=== PATIENT | female | born 1985 | race Caucasian/White ===

== ENCOUNTER 2016-04-17 13:07 | Day surgery (SDC) | payer MEDICAID ==
--- OUTSIDE RECORDS SUMMARY | 2016-04-17 13:10 | XMS REPORT | Continuity of Care Document ---
:1985 Author Organization [facility] ([facility]) Address [address] [place] [address] Phone [phone] Care Team Providers Name Role Phone [facility] Primary Care Provider [phone] Source Comments This disclosure is being made pursuant to the Care Everywhere program, applicable federal and state laws, and may not contain all informaitonavailable regarding this patient.[facility] ([facility]) Active Allergies and Adverse Reactions No Known Allergies Current Medications Prescription Sig. Disp. Refills Start Date End Date Status multivitamin Take 1 Tab by mouth Active with minerals 28-0.8 mg daily. per tablet glyBURIDE 2.5 mg tablet Take 2.5 mg by mouth Active daily. Indications: GESTATIONAL DIABETES MELLITUS Active Problems Problem Noted Date Superficial thrombophlebitis 01/03/2013 Gestational diabetes mellitus, class A2 01/03/2013 labor 01/02/2013 Social History Tobacco Use Types Packs/Day Years Used Date Never Smoker Smokeless Tobacco: Never Used Alcohol Use Drinks/Week oz/Week Comments No Last Filed Vital Signs Vital Sign Reading Time Taken Blood Pressure 115/73 01/03/2013 9:05 AM CDT Pulse - - Temperature 36.9 C (98.4 F) 01/03/2013 9:05 AM CDT Respiratory Rate - - Height 1.6 m (5' 3") 01/02/2013 9:35 PM CDT Weight 73.029 kg (161 lb) 01/02/2013 9:35 PM CDT Body Mass Index 28.53 01/02/2013 9:35 PM CDT Oxygen Saturation - - Plan of Care Health Maintenance Due Date Last Done Comments Hepatitis B Vaccine (1 of 3 - Primary Series) 1985 Tdap Vaccine 05/06/1994 Lipid Disorder Screening 05/06/2001 MMR Vaccine 05/06/2001 Td Vaccine 05/06/2001 Cervical Cancer Screening 05/06/2013 Influenza Vaccine: Seasonal (#1) 10/04/2015 Results from Last 3 Months Not on file
--- NOTE | 2016-04-17 13:29 | OR ---
Anesthesia Pre Procedure Eval Date of Service: 04/17/16 Pre Procedure Evaluation: Last Vital Signs Temp 36.8 C 04/17/16 13:17 Pulse 86 04/17/16 13:17 Resp 16 04/17/16 13:17 BP 122/86 04/17/16 13:17 Pulse Ox 99 04/17/16 13:17 O2 Oxygen Delivery Method Room Air DATE: 04/17/2016 TIME: 1325 INDICATIONS: Olfactory changes and headaches, abnormal MRI PAST MEDICAL HISTORY: Approximate one-month history of changes in the sense of smell with apparent phantom odors of metal not accompanied by taste changes. An MRI shows some abnormality. EXAM: Heart S1-S2 regular; lungs clear bilaterally ASSESSMENT OF MEDICAL STATUS: Patient also has diabetes but on no anticoagulation and this apparent appropriate candidate for lumbar puncture for diagnosis. PLANNED PROCEDURE: Lumbar puncture for diagnosis. Home Medications: HOME MEDICATIONS Heparin Sodium,Porcine [Heparin Sodium] 5,000 unit SC BID 01/23/13 [Last Taken 01/22/13 04:00] Vit#96/Ferrous Fum/FA [ S] 1 tab PO DAILY 01/23/13 [Last Taken 01/22/13 21:00]
--- NOTE | 2016-04-17 14:04 | OR ---
Anesthesia Procedure Note - Anesthesia Procedure Note Date of Service: 04/17/16 Narrative: Vital Signs - Last Taken Temp 36.8 C 04/17/16 13:17 Pulse 86 04/17/16 13:17 Resp 16 04/17/16 13:17 BP 122/86 04/17/16 13:17 Pulse Ox 99 04/17/16 13:17 O2 Oxygen Delivery Method Room Air 04/17/16 14:01 ANESTHESIA PROCEDURE NOTE Date of Procedure: 04/17/2016 Time of procedure: 1335. Performed by: VEE Hilario CRNA, MSN Curtain Stitcher: Laney Chaudhary RN. Preprocedure diagnosis: Diabetes, olfactory changes, MRI changes. Post procedure diagnosis: Same. Procedure: Lumbar Puncture at L4 5. Indications: Diabetes, MRI changes. Findings: See below. Details of the procedure: The patient was placed in right lateral position the back was prepped with Duraprep and draped in a sterile fashion. The L 45 interspace was localized with 1% lidocaine solution. Using a #22-gauge Cary needle the CSF was contacted and clear CSF returned. The opening pressure measured 24.6 centimeters water pressure. 4 vials of CSF were harvested and a closing pressure of 18.2 cm of water pressure was measured. The spinal needle was then removed and a Band-Aid was applied. EBL: Minimal. Fluids: N/A. Specimen:3vials of clear CSF2 milliliters each, 1 vial of CSF with 8 mL. Post procedure condition: The patient tolerated the procedure well. No complications were noted. Thank you for this consultation. Zohaib García CRNA, ARNP, MSN
[2016-04-17 14:32] LABS: CSF Appearance Clear (CLEAR); CSF Color Colorless (COLORLESS); CSF RBC 129 /uL (0-10); CSF WBC 0 /uL (0-10)
[2016-04-17 14:34] LABS: CSF Appearance Clear (CLEAR); CSF Color Colorless (COLORLESS); CSF RBC 0 /uL (0-10); CSF WBC 0 /uL (0-10)
[2016-04-17 14:51] VITALS: BP 127/80
[2016-04-21 06:12] LABS: CSF ACE <5 U/L (< OR = 15); CSF Oligoclonal Bands NO BANDS (NO BANDS)
[2016-04-27 01:06] LABS: CSF IgG Synthesis -3.2 mg/24 h (-9.9 TO +3.3)
[2016-04-27 05:10] LABS: CSF IgG Index 0.46
== END 2016-04-17 13:08 | disposition home or self-care (01) ==
LOC: AMB 13:07
PROVIDERS: ATTEND Physician Assistant
PROC: 009U3ZX Drainage of Spinal Canal, Percutaneous Approach, Diagnostic (ICD-10-PCS; principal; 2016-04-17 13:30)
DX: E11.9 Type 2 diabetes mellitus without complications (principal); R51 Headache; R42 Dizziness and giddiness